=== PATIENT | male | born 1945 | race Caucasian/White ===

== ENCOUNTER 2020-07-13 21:08 | Observation (INO) | payer BC, MEDICARE, OTHER ==
[~2020-07-13] VITALS: Ht 162.6 cm; Wt 69.6 kg
--- NOTE | 2020-07-13 21:37 | NUR ---
ASSUMED CARE OF PATIENT. PATIENT BIB EMS FROM [facility]. PT REPORTS AFTER DIALYSIS TODAY HE BECAME CONFUSED. SYMPTOMS HAVE NOW RESOLVED. VS STABLE. NO ACUTE DISTRESS NOTED. RADIO PROGRAM DIRECTOR ON. CALL LIGHT IN PLACE. WILL CONTINUE TO MONITOR.
--- NOTE | 2020-07-13 22:41 | NUR ---
PT WATCHING TV IN ROOM. VS STABLE. NO ACUTE DISTRESS NOTED. CALL LIGHT IN PLACE. WILL CONTINUE TO MONITOR.
--- NOTE | 2020-07-13 23:30 | NUR ---
PT RESTING IN ROOM. REGUARL RESP. NO ACUTE DISTRESS NOTED. GLASS ENGRAVER ON. NSR NOTED. CALL LIGHT IN PLACE. WILL CONTINUE TO MONITOR.
[2020-07-14] VITALS (9 sets, daily range): BP systolic 102–150; BP diastolic 60–79
[2020-07-14] MEDS ORDERED: hydrALAzine 20 MG/ML, 1ML IVPush PRN
[2020-07-14] MEDS ORDERED: PROMETHAZINE 25 MG/ML, 1ML IM PRN
[2020-07-14] MEDS ORDERED: ACETAMINOPHEN 325 MG TABLET PO PRN
[2020-07-14] MEDS ORDERED: TRAZODONE 50MG TABLET PO PRN
--- NOTE | 2020-07-14 00:15 | NUR ---
PT RESTING IN ROOM. TAX ASSOCIATE ATTORNEY ON. NO ACUTE DISTRESS NOTED. CALL LIGHT IN PLACE. WILL CONTINUE TO MONITOR.
[2020-07-14] MEDS ORDERED: POTASSIUM PHOSPHATE 22 MEQ in SODIUM CHLORIDE 0.9% 500 ML IV ONE (01:00)
[2020-07-14] MEDS ORDERED: MAGNESIUM SULFATE 1 GM in SODIUM CHLORIDE 0.9% 50 ML IV ONE (01:00)
[2020-07-14] MEDS ORDERED: MAGNESIUM SULFATE/D5W 100 ML IV ONE (01:51)
[2020-07-14] MEDS: ASPIRIN 81 MG TABLET EC PO SCH (05:44)
[2020-07-14 07:12] LABS: BASOPHILS % (AUTO) 1 % (0-1); EOSINOPHILS % (AUTO) 4 % (1-7); LYMPHOCYTES % (AUTO) 11 % (22-44); MEAN CORPUSCULAR HEMOGLOBIN 34.1 pg (27.5-34.5); MEAN CORPUSCULAR HGB CONC 34.4 g/dL (33.2-36.2); MEAN PLATELET VOLUME 7.3 fL (7.4-10.4); MONOCYTES % (AUTO) 17 % (2-9); NEUTROPHILS % (AUTO) 68 % (42-75); PLATELET COUNT 186 x10^3/uL (130-400); RED CELL DISTRIBUTION WIDTH 13.3 % (9.4-14.8)
[2020-07-14 07:19] LABS: ANION GAP 7 mmol/L (5-15); CALCIUM 8.7 mg/dL (8.5-10.1); CHLORIDE 101 mmol/L (98-107); CHOLESTEROL, TOTAL 122 mg/dL (140-239); CREATININE 4.73 mg/dL (0.7-1.3); TRIGLYCERIDES 129 mg/dL (50-200); VLDL CHOLESTEROL 26 mg/dL (0-25)
[2020-07-14 07:36] LABS: MD SCAN
[2020-07-14 07:46] LABS: CHOL/HDL RATIO 2.4; HDL CHOL % 42 % (26-37); HDL CHOLESTEROL (DIRECT) 51 mg/dL (40-60); LDL CHOLESTEROL,CALCULATED 45 mg/dL (54-169); LDL/HDL RATIO 0.9 (0.5-3.0)
[2020-07-14] MEDS ORDERED: SEVE800T8 PO (13:25)
[2020-07-14] MEDS ORDERED: ASPI81TA45 PO (13:25)
[2020-07-14] MEDS ORDERED: FURO80TA3 PO (13:25)
[2020-07-14] MEDS ORDERED: LOSA100T14 PO (13:25)
[2020-07-14] MEDS ORDERED: BUDE10.22 INH (13:25)
[2020-07-14] MEDS ORDERED: OMEP-110 PO (13:25)
[2020-07-14] MEDS ORDERED: ALLO300T PO (13:25)
[2020-07-14] MEDS ORDERED: LEVO25TA4 PO (13:25)
[2020-07-14] MEDS ORDERED: AMLO-211 PO (13:25)
[2020-07-14] MEDS ORDERED: TIOT18CA INH (13:25)
[2020-07-14] MEDS ORDERED: ATOR20TA37 PO (13:25)
[2020-07-14] MEDS: SEVELAMER CARBONATE 800MG TAB PO SCH (16:51)
[2020-07-14] MEDS: CARVEDILOL 3.125 MG TABLET PO SCH (18:31)
[2020-07-14] MEDS ORDERED: ATORVASTATIN 80 MG TABLET PO SCH (21:00)
[2020-07-14] MEDS: TEMPLATE NON-FORMULARY MED. (Budesonide/Formoterol Fumarate (Symbicort 80-4.5 Mcg Inhaler) INH SCH (22:05)
[2020-07-15 02:43] VITALS: BP 138/65
[2020-07-15 05:05] VITALS: BP 140/67
[2020-07-15] MEDS: ASPIRIN 81 MG TABLET EC PO SCH (05:10)
[2020-07-15] MEDS: CARVEDILOL 3.125 MG TABLET PO SCH ×2 (05:10→18:00)
[2020-07-15] MEDS ORDERED: LEVOTHYROXINE 25 MCG TABLET PO SCH (06:00)
[2020-07-15] MEDS ORDERED: OMEPRAZOLE 20 MG CAPSULE.DR PO SCH (07:00)
[2020-07-15] MEDS: SEVELAMER CARBONATE 800MG TAB PO SCH ×3 (08:25→17:00)
[2020-07-15] MEDS ORDERED: FUROSEMIDE 40 MG TABLET PO SCH (09:00)
[2020-07-15] MEDS ORDERED: TIOTROPIUM BROMIDE 18 MCG/INH INH SCH (09:00)
[2020-07-15] MEDS: TEMPLATE NON-FORMULARY MED. (Budesonide/Formoterol Fumarate (Symbicort 80-4.5 Mcg Inhaler) INH SCH (09:00)
[2020-07-15 14:00] VITALS: BP 102/59
[2020-07-15] MEDS: ARANESP 40 MCG/ML **ESRD SQ SCH ×2 (15:02→17:30)
[2020-07-15] MEDS ORDERED: CARV3.1212 PO (15:29)
[2020-07-15] MEDS ORDERED: ATOR-2 PO (15:29)
[2020-07-15] MEDS ORDERED: FURO-92 PO (15:29)
== END 2020-07-15 20:45 | disposition home or self-care (01) ==
LOC: ED 22:34 → INTOOBSV 07-14 00:30 → EDIP 07-14 00:30 → 5SO 07-14 01:45
PROVIDERS: ADMIT Family Medicine; ATTEND Hospitalist
DX: R41.82 Altered mental status, unspecified (principal); I13.2 Hypertensive heart and chronic kidney disease with heart failure and with stage 5 chronic kidney disease, or end stage renal disease; I50.32 Chronic diastolic (congestive) heart failure; N18.6 End stage renal disease; J44.9 Chronic obstructive pulmonary disease, unspecified; J96.90 Respiratory failure, unspecified, unspecified whether with hypoxia or hypercapnia; L98.8 Other specified disorders of the skin and subcutaneous tissue; D63.1 Anemia in chronic kidney disease; E87.6 Hypokalemia; E83.39 Other disorders of phosphorus metabolism; E83.42 Hypomagnesemia; G45.9 Transient cerebral ischemic attack, unspecified; I25.10 Atherosclerotic heart disease of native coronary artery without angina pectoris; J98.4 Other disorders of lung; E03.9 Hypothyroidism, unspecified; E83.41 Hypermagnesemia; D72.819 Decreased white blood cell count, unspecified; F17.200 Nicotine dependence, unspecified, uncomplicated; Z79.82 Long term (current) use of aspirin; Z86.73 Personal history of transient ischemic attack (TIA), and cerebral infarction without residual deficits; Z79.899 Other long term (current) drug therapy; Z99.81 Dependence on supplemental oxygen; Z99.2 Dependence on renal dialysis
CPT/HCPCS: 36415; 70551; 80048; 80061; 82607; 83735; 84100; 84443; 85025; 93306; 93880; 96365; 97161; 99284; G0378; J0882; 96372; G0257